=== PATIENT | female | born 1990 | race Caucasian/White ===

== ENCOUNTER 2017-11-18 18:37 | Emergency (ER) | payer MEDICAID ==
[~2017-11-18] VITALS: Ht 157.5 cm; Wt 67.1 kg
--- NOTE | 2017-11-18 19:01 | NUR ---
MD is at bedside evaluating the patient, pending MD orders
--- NOTE | 2017-11-18 19:06 | NUR ---
REPORT TAKEN FROM DAY SHIFT RN, ASSUMING PT CARE AT THIS TIME.
[2017-11-18 19:11] LABS: *BILIRUBIN,URIN NEGATIVE (NEGATIVE); *BLOOD, URINE NEGATIVE (NEGATIVE); *CLARITY,URINE CLEAR (CLEAR); *KETONES,URINE NEGATIVE (NEGATIVE); *PROTEIN,URINE NEGATIVE (NEGATIVE); *UROBILINOGEN,URINE 0.2 E.U./dl (NORMAL); LEUKOCYTE ESTERASE ,URINE NEGATIVE (NEGATIVE); NITRITE, URINE NEGATIVE (NEGATIVE); UGLUCOSE NEGATIVE (NEGATIVE)
[2017-11-18 19:12] LABS: *URINE HCG, QUAL NEGATIVE (NEGATIVE)
[2017-11-18 19:13] LABS: *COLOR,URINE LIGHT YELLOW (YELLOW)
[2017-11-18 19:16] LABS: BACTERIA,URINE FEW /HPF (NONE SEEN); SQUAMOUS EPITHELIAL CELL,UR FEW /HPF (NONE SEEN); WBC,URINE 0-3 /HPF (0-3)
--- NOTE | 2017-11-18 19:31 | NUR ---
Patient discharged to home in stable conditon. Written and verbal after care instructions given. Patient verbalizes understanding of instructions. Pt ambulated from ER w/ steady gait, accompanied by mother. No distress noted. Pt took all personal belongings.
[2017-11-18 19:33] VITALS: BP 114/66
== END 2017-11-18 19:35 | disposition home or self-care (01) ==
LOC: ER 18:39
DX: N39.0 Urinary tract infection, site not specified (principal); B37.9 Candidiasis, unspecified; Z88.2 Allergy status to sulfonamides
CPT/HCPCS: 84703; 87086; A4663

== ENCOUNTER 2018-12-11 09:59 | Emergency (ER) | payer MEDICAID ==
[~2018-12-11] VITALS: Ht 157.5 cm; Wt 68.0 kg
--- NOTE | 2018-12-11 10:23 | NUR ---
Patient discharged to home in stable conditon with brisk steady gait. Written and verbal after care instructions given to patient and family. Patient & family verbalized understanding & compliance of instructions.
== END 2018-12-11 10:24 | disposition home or self-care (01) ==
LOC: ER 09:59
DX: J02.9 Acute pharyngitis, unspecified (principal); Z88.2 Allergy status to sulfonamides
CPT/HCPCS: A4663